=== PATIENT | male | born 1985 | race Caucasian/White ===

== ENCOUNTER 2017-03-04 18:55 | Emergency (ER) | payer OTHER ==
[2017-03-04 19:07] VITALS: O2SAT 96
--- NOTE | 2017-03-04 19:10 | EDPHY ---
H & P Stated Complaint: bloody stool- UC Time Seen by Provider: 03/04/17 19:10 - Personal History Tetanus Vaccine Date: <10YRS - Medical/Surgical History Hx Asthma: No Hx Chronic Respiratory Disease: No Hx Diabetes: No Hx Cardiac Disease: No Hx Renal Disease: No Hx Cirrhosis: No Hx Alcoholism: No Hx HIV/AIDS: No Hx Splenectomy or Spleen Trauma: No Other PMH: UC - Social History Smoking Status: Never smoked Constitutional: Initial Vital Signs Temperature (C) 37.7 C 03/04/17 19:04 Heart Rate 82 03/04/17 19:04 Respiratory Rate 16 03/04/17 19:04 Blood Pressure 117/54 L 03/04/17 19:04 O2 Sat (%) 96 03/04/17 19:04 O2 Delivery Mode Room Air Allergies/Adverse Reactions: No Known Allergies Allergy (Unverified 07/07/12 09:50) Home Medications: Medication Instructions Recorded Miscellaneous Medical Supply [NO 1 ea MISC AD 07/07/12 HOME MEDS] Mesalamine 2,400 mg PO DAILY #90 tablet. 03/04/17 Mesalamine [Lialda] 2.4 gm PO DAILY #60 tablet. 03/04/17 Medical Decision Making ED Course/Re-evaluation: CHIEF COMPLAINT: Bloody diarrhea HISTORY OF PRESENT ILLNESS: The patient is a 31 y/o male, with a history of ulcerative colitis, complaining of bloody stools. His first episode of ulcerative colitis appeared in 2009 and went into remission for about 6 years shortly after a colonoscopy. His symptoms returned about 7 months ago during a trip to [facility]. He eventually returned to for management this spring; however, the medications that helped previously are now over $1000/week. He describes himself as a "shitty patient" that has not followed recommended treatment because of expense and because they do not completely relieve his symptoms. Last night he ate a heavy meal and shortly afterwards noticed increased amounts of blood mixed in with his diarrhea. He has associated urgency and feels fatigued like with previous anemia related to his UC. He denies any abdominal pain. REVIEW OF SYSTEMS: A 10 point review of systems was performed and is negative with the exception of the elements mentioned in the history of present illness. PHYSICAL EXAM: HR, BP, O2 Sat, RR. Temp noted General Appearance: Alert, well hydrated, appropriate, and non-toxic appearing. Head: Atraumatic without scalp tenderness or obvious injury Eyes: Pupils equal, round, reactive to light and accommodation, EOMI, no trauma , no injection. Nose: Atraumatic, no rhinorrhea, clear. Throat: Mucus membranes moist. Neck: Supple, nontender, no lymphadenopathy. Respiratory: No retractions, no distress, no wheezes, and no accessory muscle use. Lungs are clear to auscultation bilaterally. Cardiovascular: Regular rate and rhythm, no murmurs, rubs, or gallops. Good capillary refill all extremities. Gastrointestinal: Abdomen is soft, nontender, non-distended, no masses, no rebound, no guarding, no peritoneal signs. Musculoskeletal: Normal active ROM of all extremities, atraumatic. Neurological: Alert, appropriate, and interactive. Nonfocal neuro exam. Skin: No rashes, good turgor, no nodules on palpation. Past medical history: ulcerative colitis 2009 Past surgical history: denies Family history: noncontributory Social history: PCP: Dr. Mclaughlin, GI: Dr. Gutiérrez DIFFERENTIAL DIAGNOSIS: The differential diagnosis for the patient's bloody diarrhea included but was not limited to ulcerative colitis flare, GI bleeding, hemorrhoids, gastroenteritis, gastritis, appendicitis, and medication side effect. MEDICAL DECISION MAKING: This is an otherwise healthy 31 y/o male with a history of ulcerative colitis that came out of remission about 7 months ago. He developed worsening bloody diarrhea and fatigue over the last day. He has a completely benign abdomen on exam. He does not meet criteria for imaging. Plan for labs only at this time. Labs unremarkable. Consulted with Dr. Potter, GI. He recommends 2.4mg Lialda daily until his GI follow up. I discussed this recommendation with the patient. He will receive 1600mg mesalamine here. He is comfortable with treatment plan. Return precautions given. - Data Points Laboratory Results: Laboratory Results 03/04/17 19:15 03/04/17 19:15 03/04/17 03/04/17 03/04/17 19:15 19:15 19:15 WBC 11.94 10^3/uL H 10^3/uL (3.80-9.50) RBC 4.89 10^6/uL 10^6/uL (4.40-6.38) Hgb 15.2 g/dL g/dL (13.7-17.5) Hct 44.3 % % (40.0-51.0) MCV 90.6 fL fL (81.5-99.8) MCH 31.1 pg pg (27.9-34.1) MCHC 34.3 g/dL g/dL (32.4-36.7) RDW 12.6 % % (11.5-15.2) Plt Count 269 10^3/uL 10^3/uL (150-400) MPV 9.2 fL fL (8.7-11.7) Neut % (Auto) 83.3 % H % (39.3-74.2) Lymph % (Auto) 7.8 % L % (15.0-45.0) Hutchinson % (Auto) 4.9 % % (4.5-13.0) Eos % (Auto) 2.8 % % (0.6-7.6) Baso % (Auto) 0.6 % % (0.3-1.7) Nucleat RBC Rel Count 0.0 % % (0.0-0.2) Absolute Neuts (auto) 9.95 10^3/uL H 10^3/uL (1.70-6.50) Absolute Lymphs (auto) 0.93 10^3/uL L 10^3/uL (1.00-3.00) Absolute Monos (auto) 0.58 10^3/uL 10^3/uL (0.30-0.80) Absolute Eos (auto) 0.34 10^3/uL 10^3/uL (0.03-0.40) Absolute Basos (auto) 0.07 10^3/uL 10^3/uL (0.02-0.10) Absolute Nucleated RBC 0.00 10^3/uL 10^3/uL (0-0.01) Immature Gran % 0.6 % % (0.0-1.1) Immature Gran # 0.07 10^3/uL 10^3/uL (0.00-0.10) PT 14.2 SEC SEC (12.0-15.0) INR 1.11 (0.83-1.16) APTT 24.0 SEC SEC (23.0-38.0) Sodium 137 mEq/L mEq/L (134-144) Potassium 3.9 mEq/L mEq/L (3.5-5.2) Chloride 100 mEq/L mEq/L (97-110) Carbon Dioxide 22 mEq/l mEq/l (22-31) Anion Gap 15 mEq/L mEq/L (8-16) BUN 19 mg/dL mg/dL (7-23) Creatinine 1.0 mg/dL mg/dL (0.7-1.3) Estimated GFR > 60 Glucose 113 mg/dL H mg/dL (70-100) Calcium 10.2 mg/dL mg/dL (8.5-10.4) Total Bilirubin 1.4 mg/dL mg/dL (0.1-1.4) Conjugated Bilirubin 0.5 mg/dL mg/dL (0.0-0.5) Unconjugated Bilirubin 0.9 mg/dL mg/dL (0.0-1.1) AST 18 IU/L IU/L (17-59) ALT 33 IU/L IU/L (21-72) Alkaline Phosphatase 68 IU/L IU/L (38-126) Total Protein 8.3 g/dL H g/dL (6.3-8.2) Albumin 5.0 g/dL g/dL (3.5-5.0) Lipase 95.0 IU/L IU/L (23-300) Departure - Departure Disposition: Home, Routine, Self-Care Clinical Impression: Bloody stools Ulcerative colitis Qualifiers: Ulcerative colitis location: other ulcerative colitis Digestive disease complication type: with rectal bleeding Qualified Code(s): K51.811 - Other ulcerative colitis with rectal bleeding Condition: Good Instructions: Ulcerative Colitis (ED) Additional Instructions: Your labs today show you are not anemic; your hematocrit is 44.3. GI recommends using 2.4gm Mesalamine (generic) daily for the 4 weeks. You can use generic or brand name (Lialda), whatever is most accessible to you. You can also use Can[facility]. Follow up with your GI doctor in the next week. Referrals: Phuc Mclaughlin MD [Primary Care Provider] - As per Instructions Dany Gutiérrez MD [[facility] [place] Primary Care Provider] - As per Instructions Prescriptions: Mesalamine [Lialda] 2.4 gm PO DAILY #60 tablet.dr Mesalamine 2,400 mg PO DAILY #90 tablet. Report Scribed for: Alcon Hager Report Scribed by: Tali Orantes Date of Report: 03/04/17 Time of Report: 19:35
[2017-03-04 19:33] LABS: % IMMATURE GRANULYOCYTES 0.6 % (0.0-1.1); ABSOLUTE IMMATURE GRANULOCYTES 0.07 10^3/uL (0.00-0.10); ADD DIFF? NO; ADD MORPH? NO; ADD SCAN? NO; ATYPICAL LYMPHOCYTE FLAG 10 (0-99); FRAGMENT RBC FLAG 0 (0-99); HEMATOCRIT 44.3 % (40.0-51.0); HEMOGLOBIN 15.2 g/dL (13.7-17.5); LEFT SHIFT FLG 0 (0-99); LIPEMIA HEMOLYSIS FLAG 90 (0-99); MEAN CELL HEMOGLOBIN 31.1 pg (27.9-34.1); MEAN CELL HEMOGLOBIN CONCENTR. 34.3 g/dL (32.4-36.7); MEAN CELL VOLUME 90.6 fL (81.5-99.8); MEAN PLATELET VOLUME 9.2 fL (8.7-11.7); PLATELET CLUMPS FLAG 0 (0-99); PLATELET COUNT 269 10^3/uL (150-400); RED BLOOD CELL COUNT 4.89 10^6/uL (4.40-6.38); RED CELL DISTRIBUTION WIDTH 12.6 % (11.5-15.2)
[2017-03-04 19:42] LABS: INR 1.11 (0.83-1.16); PROTIME(PATIENT) 14.2 SEC (12.0-15.0)
[2017-03-04 19:45] LABS: ALANINE AMINOTRANSFERASE 33 IU/L (21-72); ALKALINE PHOSPHATASE 68 IU/L (38-126); ANION GAP 15 mEq/L (8-16); ASPARTATE AMINOTRANSFERASE 18 IU/L (17-59); BILIRUBIN,TOTAL 1.4 mg/dL (0.1-1.4); BILIRUBIN-CONJUGATED 0.5 mg/dL (0.0-0.5); BILIRUBIN-UNCONJUGATED 0.9 mg/dL (0.0-1.1); CALCIUM 10.2 mg/dL (8.5-10.4); CARBON DIOXIDE 22 mEq/l (22-31); CHLORIDE 100 mEq/L (97-110); GLOMERULAR FILTRATION RATE > 60; GLUCOSE 113 mg/dL (70-100); POTASSIUM 3.9 mEq/L (3.5-5.2); SODIUM 137 mEq/L (134-144); TOTAL PROTEIN 8.3 g/dL (6.3-8.2)
[2017-03-04] MEDS ORDERED: MESALAMINE 800 MG TAB.DR PO ONE (19:54)
[2017-03-04 20:24] VITALS: BP 124/76; PULSE 77; RESP 15; TEMP 98.4
[2017-03-05] MEDS ORDERED: MESALAMINE 400 MG CAP.DR PO ONE (19:54)
== END 2017-03-04 20:23 | disposition home or self-care (01) ==
DX: K51.811 Other ulcerative colitis with rectal bleeding (principal)